=== PATIENT | female | born 1985 | race Caucasian/White ===

== ENCOUNTER 2016-10-13 02:14 | Emergency (ER) | payer OTHER ==
[~2016-10-13] VITALS: Ht 162.6 cm; Wt 68.2 kg
[2016-10-13] MEDS ORDERED: KETOROLAC TROMETHAMINE 30 MG/ML VIAL IVP ONE (03:00)
[2016-10-13] MEDS: CEFTAROLINE 600 MG/D5W 250 ML IV ONE ×2 (03:58→04:14)
[2016-10-13 05:01] VITALS: BP 122/74
== END 2016-10-13 05:02 | disposition home or self-care (01) ==
LOC: EMS 02:17
DX: S30.861A Insect bite (nonvenomous) of abdominal wall, initial encounter (principal); L03.311 Cellulitis of abdominal wall; W57.XXXA Bitten or stung by nonvenomous insect and other nonvenomous arthropods, initial encounter; Y99.9 Unspecified external cause status; Y92.9 Unspecified place or not applicable; Y93.89 Activity, other specified
CPT/HCPCS: 96365; 96374; 99284; J0712; J1885